=== PATIENT | female | born 1990 | race American Indian/Alaskan Native ===

== ENCOUNTER 2021-11-05 16:59 | Inpatient (IN) | payer MEDICAID ==
[2021-11-05] MEDS ORDERED: BUTORPHANOL 2 MG/1 ML INJ IV PRN ×2 (17:00)
[2021-11-05] MEDS ORDERED: CARBOPROST TROMETHAMINE 250 MCG/1 ML INJ IM PRN (17:00)
[2021-11-05] MEDS ORDERED: ACETAMINOPHEN 325 MG TAB PO PRN (17:00)
[2021-11-05] MEDS ORDERED: LOPERAMIDE 2 MG CAP PO PRN (17:14)
[2021-11-05] MEDS ORDERED: ePHEDrine SULFATE 50 MG/1 ML INJ IV PRN (17:14)
[2021-11-05] MEDS ORDERED: METHYLERGONOVINE MALEATE 0.2 MG/ML VIAL IM PRN (17:14)
[2021-11-05] MEDS ORDERED: miSOPROStol 200 MCG TAB PR PRN (17:14)
[2021-11-05] MEDS ORDERED: MINERAL OIL 30 ML ORAL LIQD PO PRN (17:14)
[2021-11-05] MEDS ORDERED: LIDOCAINE (2%) 20 MG/1 ML VIAL 20 ML MDV INFILTRATI ONE (17:14)
[2021-11-05] MEDS ORDERED: TERBUTALINE 1 MG/1 ML INJ SUB-Q PRN (17:14)
[2021-11-05] MEDS ORDERED: OXYTOCIN 10 UNIT/1 ML INJ IM PRN (17:14)
[2021-11-05] MEDS ORDERED: DINOPROSTONE 10 MG VAG SUPP VG ONE (17:17)
--- NOTE | 2021-11-05 17:22 | History and Physical Report ---
History of Present Illness Date of examination: 11/05/21 Date of admission: 11/05/21 16:59 Chief complaint: Here for induction of labor for obesity @ 39 weeks History of present illness: See CC Past History Past Medical History: no pertinent history Past Surgical History: no surgical history Family/Genetic History: none - Obstetrical History Expected Date of Delivery: 11/11/21 Actual Gestation: 39 Week(s) 1 Day(s) : 1 Para: 0 Number of Living Children: 0 Medications and Allergies Allergies Allergy/AdvReac Type Severity Reaction Status Date / Time No Known Allergies Allergy Unverified 11/05/21 17:15 Active Meds: Active Medications Acetaminophen (Acetaminophen 325 Mg Tab) 650 mg PO Q4H PRN PRN Reason: Pain, Mild (1-3) Butorphanol Tartrate (Butorphanol 2 Mg/1 Ml Inj) 1 mg IV Q2H PRN PRN Reason: Pain, Moderate(4-6) LABOR PAIN Butorphanol Tartrate (Butorphanol 2 Mg/1 Ml Inj) 2 mg IV Q2H PRN PRN Reason: Pain , Severe (7-10) Carboprost Tromethamine (Carboprost Tromethamine 250 Mcg/1 Ml Inj) 250 mcg IM ONCE PRN PRN Reason: Uterine Bleeding Ephedrine Sulfate (Ephedrine Sulfate 50 Mg/1 Ml Inj) 10 mg IV Q2M PRN PRN Reason: Hypotension Oxytocin/Sodium Chloride (Pitocin/Ns 30 Unit/500ml) 30 units in 500 mls @ 2 mls/hr IV TITR SIVA; Protocol Lactated Ringer's (Lactated Ringers) 1,000 mls @ 125 mls/hr IV DIRECT SIVA Oxytocin/Sodium Chloride (Pitocin/Ns 30 Unit/500ml) 30 units in 500 mls @ 40 mls/hr IV TITR SIVA; Protocol Lidocaine (Lidocaine (2%) 20 Mg/1 Ml Vial 20 Ml Mdv) 20 ml INFILTRATI ONCE ONE Stop: 11/05/21 17:15 Loperamide HCl (Loperamide 2 Mg Cap) 2 mg PO ONCE PRN PRN Reason: give with Hemabate Methylergonovine Maleate (Methylergonovine Maleate 0.2 Mg/Ml Vial) 0.2 mg IM ONCE PRN PRN Reason: Uterine Bleeding Mineral Oil (Mineral Oil 30 Ml Oral Liqd) 30 ml PO QHS PRN PRN Reason: Constipation Misoprostol (Misoprostol 200 Mcg Tab) 800 mcg [place] ONCE PRN PRN Reason: Uterine Bleeding Oxytocin (Oxytocin 10 Unit/1 Ml Inj) 10 unit IM ONCE PRN PRN Reason: Uterine Bleeding Terbutaline Sulfate (Terbutaline 1 Mg/1 Ml Inj) 0.25 mg SUB-Q ONCE PRN PRN Reason: Hyperstimulation/Hypertonicity Review of Systems All systems: negative - Physical Exam Breasts: Positive: deferred Cardiovascular: Regular rate Lungs: Positive: Clear to auscultation Abdomen: Positive: soft Genitourinary (Female): Positive: normal external genitalia Vulva: both: normal Vagina: Positive: normal moisture Uterus: Positive: enlarged Adnexa: both: normal Extremities: Positive: normal Deep Tendon Reflex Grade: Normal +2 - Obstetrical FHR: category 1 Uterine Contraction Monitor Mode: External Cervical Dilatation: 3 Cervical Effacement Percentage: 70 station: -1 Uterine Contraction Pattern: Irregular Uterine Contraction Intensity: Mild Results All other labs normal. Assessment and Plan A: Induction of labor at 39 weeks for obesity P: Pitocin augmentation Expect
[2021-11-05] MEDS ORDERED: OXYTOCIN DRIP 30 UNITS/500 ML BAG IV SCH ×2 (18:00)
[2021-11-05 18:43] LABS: Hemoglobin 10.8 gm/dl (10.1-14.3); Mean Corpuscular HGB Conc 34 % (30-34); Mean Corpuscular Volume 88 fl (79-97); Platelet Count 234 K/mm3 (140-440); Red Blood Count 3.64 M/mm3 (3.65-5.03)
[2021-11-05] MEDS: LACTATED RINGERS 1,000 ML IV SCH (20:33)
[2021-11-06] MEDS: LACTATED RINGERS 1,000 ML IV SCH ×3 (08:40→18:07)
--- NOTE | 2021-11-06 08:44 | Event Note ---
Date: 11/06/21 S: Feeling contractions O: Arom at 0418 clear, now , CAT I tracing A: Induction of labor at 39 weeks P: Expect
--- NOTE | 2021-11-06 11:38 | Anesthesia Day of Surgery ---
Anesthesia Day of Surgery - Day of Surgery Patient Examined: Yes Patient H&P Reviewed: Yes Patient is NPO: Yes Beta Blockers: No Cardiac Clearance: No Pulmonary Clearance: No Jorge Luis's Test: N/A
--- NOTE | 2021-11-06 11:38 | Anesthesia Consultation ---
Anesthesia Consult and Med Hx Date of service: 11/06/21 - Airway Anesthetic Teeth Evaluation: Good ROM Head & Neck: Adequate Mental/Hyoid Distance: Adequate Mallampati Class: Class II Intubation Access Assessment: Probably Good - Pulmonary Exam CTA: Yes - Cardiac Exam Cardiac Exam: RRR - Pre-Operative Health Status ASA Pre-Surgery Classification: ASA3 Proposed Anesthetic Plan: Epidural - Pulmonary Hx Smoking: No Hx Asthma: No Hx Respiratory Symptoms: No SOB: No COPD: No Home Oxygen Therapy: No Hx Pneumonia: No Hx Sleep Apnea: No - Cardiovascular System Hx Hypertension: No Hx Coronary Artery Disease: No Hx Heart Attack/AMI: No Hx Angina: No Hx Percutaneous Transluminal Coronary Angioplasty (PTCA): No Hx Cardia Arrhythmia: No Hx Pacemaker: No Hx Internal Defibrillator: No Hx Valvular Heart Disease: No Hx Heart Murmur: No Hx Peripheral Vascular Disease: No - Central Nervous System Hx Neuromuscular Disorder: No Hx Seizures: No CVA: No Hx Back Pain: No Hx Psychiatric Problems: No - Gastrointestinal Hx Ulcer: No Hx Gastroesophageal Reflux Disease: No - Endocrine Hx Renal Disease: No Hx End Stage Renal Disease: No Hx Cirrhosis: No Hx Liver Disease: No Hx Insulin Dependent Diabetes: No Hx Non-Insulin Dependent Diabetes: No Hx Thyroid Disease: No Hx Hypothyroidism: No Hx Hyperthyroidism: No - Hematic Hx Anemia: No Hx Sickle Cell Disease: No - Other Systems Hx Alcohol Use: No Hx Substance Use: No Hx Cancer: No Hx Obesity: Yes
--- NOTE | 2021-11-06 11:39 | Progress Note ---
Labor Epidural - Labor Epidural Start Time: 11:02 Stop Time: 10:30 Performed by:: CATE GIBSON Procedure: Epidural Requested for Labor Pain. H&P and PT Chart reviewed and consent obtained. Time out performed and the procedure was explained, all questions answered. Patient was placed in a sitting position with monitors applied. The PTs back was prepped and draped in usual sterile fashion. The Skin was localized with 3 mL of 1% lidocaine at L3-L4. A 17-gauge Touhy epidural needle was advanced to JAY with saline at 7 cm and no blood/CSF was noted via epidural needle. Epidural catheter was advanced to 12 cm. There was negative aspiration for blood and CSF in the catheter and negative response to a test dose of 3 ml 1.5% lidocaine w/ Epi and a sterile dressing was applied Patient tolerated the procedure well and there were no immediate complications noted.
[2021-11-06] MEDS ORDERED: ePHEDrine SULFATE 50 MG/1 ML INJ IV PRN (12:00)
[2021-11-06] MEDS ORDERED: NALOXONE 0.4 MG/1 ML INJ IV PRN (12:00)
[2021-11-06] MEDS ORDERED: fentaNYL-BUPIV 2 MCG/ML-0.125% 200 MCG/100 ML BAG EPIDURAL SCH (12:00)
--- NOTE | 2021-11-06 17:04 | Event Note ---
Date: 11/06/21 S: Feeling ok O: VE 8-9 Cm/80/0, IUPC and FSE placed, CAT I, Pitocin at 18mu A: 39.1 weeks for induction of labor P: Expect
--- NOTE | 2021-11-06 19:16 | Procedure Note ---
OB Delivery Note - Delivery Date of Delivery: 11/06/21 Surgeon: VIKKI SANFORD Estimated blood loss: 200cc - Vaginal Delivery presentation: vertex Delivery position: OA Delivery induction: oxytocin Delivery augmentation: rupture of membranes Delivery monitor: external FHT, external uterine, internal FHT, internal uterine Route of delivery: Delivery placenta: spontaneous Episiotomy: none Delivery laceration: none Anesthesia: epidural Delivery comments: of a viable male 7# 13 on 11/06 @ 1856 over intact perineum. Placenta delivered 3VCI. QBL 200cc. Apgars 9/9. Mother and baby doing well. - A at 1 minute: 9 at 5 minutes: 9 Infant Gender: Male (7# 13 oz)
[2021-11-06] MEDS ORDERED: WITCH HAZEL/ GLYCERIN PAD TP PRN (19:18)
[2021-11-06] MEDS ORDERED: MAGNESIUM HYDROXIDE (MOM) ORAL LIQD UDC PO PRN (19:18)
[2021-11-06] MEDS ORDERED: oxyCODONE /ACETAMINOPHEN 5-325MG TAB PO PRN (19:18)
[2021-11-06] MEDS ORDERED: ACETAMINOPHEN 325 MG TAB PO PRN (19:18)
[2021-11-06] MEDS ORDERED: diphenhydrAMINE 25 MG CAP PO PRN (19:18)
[2021-11-06] MEDS ORDERED: LANOLIN/ZINC/DIMETHICONE (LANSINOH) 7 GM TP PRN (19:18)
[2021-11-06] MEDS: IBUPROFEN 800 MG TAB PO SCH (21:17)
[2021-11-07] MEDS: IBUPROFEN 800 MG TAB PO SCH ×2 (06:00→20:57)
[2021-11-07 09:20] LABS: Hemoglobin 8.8 gm/dl (10.1-14.3)
--- NOTE | 2021-11-07 10:53 | Post Anesthesia Evaluation ---
- Post Anesthesia Evaluation Patient Participated: Yes Airway Patent: Yes Stable Respiratory Function: Yes Nausea/Vomiting: No Temp > 96.8F: Yes Pain Manageable: Yes Adequeate Hydration: Yes Anesthesia Complications: No Block Receding Appropriately: Yes Patient on Ventilator: No
--- NOTE | 2021-11-07 12:47 | Discharge Summary ---
Providers - Providers Date of Admission: 11/05/21 17:14 Date of discharge: 11/07/21 (1200) Attending physician: DUYEN HILL Primary care physician: DUYEN HILL Hospitalization Reason for admission: induction of labor (For MO) Delivery: Episiotomy: none Laceration: none Other procedures: none complications: none Discharge diagnosis: IUP at term delivered baby: male Condition at discharge: Good Disposition: 01 HOME / SELF CARE / HOMELESS Plan - Discharge Medications Prescriptions: Ibuprofen [Motrin 800 MG tab] 800 mg PO Q8HR #30 tablet - Provider Discharge Summary Activity: no sex for 6 weeks, no heavy lifting 4 weeks, no strenuous exercise Diet: routine Instructions: routine Additional instructions: [] Smoking cessation referral if applicable(refer to patient education folder for contact #) [] Refer to [facility] Booklet Call your doctor immediately for: * Fever > 100.5 * Heavy vaginal bleeding ( >1 pad per hour) * Severe persistent headache * Shortness of breath * Reddened, hot, painful area to leg or breast * Drainage or odor from incision. * Keep incision clean and dry at all times and follow doctor's instructions regarding bathing/showering - Follow up plan Follow up: DUYEN HILL MD [Primary Care Provider] - 6 Weeks
--- NOTE | 2021-11-07 12:54 | Event Note ---
Date: 11/07/21 (4116)
[2021-11-07 21:10] VITALS: BP 113/66
== END 2021-11-07 22:57 | disposition home or self-care (01) | DRG 775 ==
LOC: LD 16:59 → UNDOADMIN 16:59 → LD 17:14 → OB 11-06 22:14
PROVIDERS: ADMIT Obstetrics & Gynecology; ATTEND Obstetrics & Gynecology
PROC: 10E0XZZ Delivery of Products of Conception, External Approach (ICD-10-PCS; principal; 2021-11-06)
PROC: 10907ZC Drainage of Amniotic Fluid, Therapeutic from Products of Conception, Via Natural or Artificial Opening (ICD-10-PCS; 2021-11-06)
PROC: 3E0R3BZ Introduction of Anesthetic Agent into Spinal Canal, Percutaneous Approach (ICD-10-PCS; 2021-11-06)
PROC: 00HU33Z Insertion of Infusion Device into Spinal Canal, Percutaneous Approach (ICD-10-PCS; 2021-11-06)
PROC: 10H07YZ Insertion of Other Device into Products of Conception, Via Natural or Artificial Opening (ICD-10-PCS; 2021-11-06)
PROC: 3E033VJ Introduction of Other Hormone into Peripheral Vein, Percutaneous Approach (ICD-10-PCS; 2021-11-06)
DX: O99.214 Obesity complicating childbirth (principal); Z37.0 Single live birth; Z3A.39 39 weeks gestation of pregnancy; Z20.822 Contact with and (suspected) exposure to COVID-19
CPT/HCPCS: 36415; 85014; 85018; 85027; 86850; 86900; 86901; G0378; J3490; J0595; J2590; J7120; U0003